=== PATIENT | female | born 1990 | race Two or more races ===

== ENCOUNTER 2025-06-10 10:00 | Day surgery (SDC) | payer OTHER ==
[~2025-06-10] VITALS: Ht 157.5 cm; Wt 95.7 kg
[~2025-06-10 10:00] MED LIST: BUDE10.32 IH; IRON65TA2 PO; MAGN400C PO; METF500T13 PO; VITA100093 PO; VITA1TAB82 PO; [UNRECOGNIZED DRUG - CODE] PO
[2025-06-10] MEDS ORDERED: KETOROLAC 30 MG/ML 1 ML VIAL As Ordered ONE (10:17)
[2025-06-10] MEDS ORDERED: dexAMETHasone 4 MG/ML 1 ML VIAL As Ordered ONE (10:17)
[2025-06-10] MEDS ORDERED: ROCURONIUM BROMIDE 50MG/5ML VIAL As Ordered ONE (10:18)
[2025-06-10] MEDS ORDERED: SUGAMMADEX SODIUM 500 MG/5 ML VIAL As Ordered ONE (10:18)
[2025-06-10] MEDS ORDERED: ONDANSETRON 4MG 2ML VIAL As Ordered ONE (10:18)
[2025-06-10] MEDS ORDERED: LIDOCAINE 2% 100 MG/5 ML SDV (FOR ANES.) As Ordered ONE (10:18)
[2025-06-10] MEDS ORDERED: MIDAZOLAM INJ 2 MG/2 ML VIAL As Ordered ONE (10:26)
[2025-06-10 10:38] LABS: PLATELET COUNT, AUTOMATED 270 10^3/uL (150-450)
[2025-06-10] MEDS: LR 1,000 ML IV SCH (11:02)
[2025-06-10] MEDS: METHYLENE BLUE 0.5% (5 MG/ML) 10 ML AMP As Ordered ONE (12:23)
[2025-06-10] MEDS ORDERED: ACETAMINOPHEN 1000MG/100ML IV BAG As Ordered ONE (12:52)
[2025-06-10] MEDS ORDERED: LR 1,000 ML IV SCH (13:35)
[2025-06-10] MEDS: HYDROMORPHONE HCL 0.5 MG/0.5 ML SYRINGE IV PRN (14:06)
[2025-06-10 16:00] VITALS: BP 113/81; TEMP 97.1; O2SAT 100
== END 2025-06-10 16:25 | disposition home or self-care (01) ==
LOC: M SDC 10:00
PROVIDERS: ATTEND Obstetrics & Gynecology
DX: Z30.2 Encounter for sterilization (principal); Z91.040 Latex allergy status
CPT/HCPCS: 36415; 58661; 85027; 86850; 86900; 86901; 88302; J0131; J0665; J1100; J1171; J1885; J2250; J2405; J3010